=== PATIENT | male | born 1985 | race Caucasian/White ===

== ENCOUNTER 2019-07-20 19:58 | Emergency (ER) | payer BC, OTHER ==
[2019-07-20 20:27] LABS: ABS Basophils 0.1 10^3/ul (0-0.2); ABS Eosinophils 0.3 10^3/ul (0-0.6); ABS Lymphocytes 2.3 10^3/ul (1.0-4.8); ABS Monocytes 0.7 10^3/ul (0-0.8); ABS Neutrophils 7.3 10^3/ul (1.5-7.7); Hematocrit 45 % (42-52); Hemoglobin 15.5 g/dL (14.0-18.0); Lymphocyte % 21.4 %; Mean Corpuscular HGB Conc 35 g/dL (31-36); Mean Corpuscular Hemoglobin 30 pg (27-31); Mean Corpuscular Volume 87 fL (80-94); Mean Platelet Volume 7.9 fL (7.4-10.4); Nucleated Red Blood Cells % 0.1; Platelet Count 233 10^3/uL (150-450); Red Blood Count 5.17 10^6 /uL (4.18-5.48); Red Cell Distribution Width 13 % (10-15); White Blood Count 10.7 10^3/uL (3.5-10.8)
[2019-07-20 20:46] LABS: ALT 28 U/L (7-52); AST 21 U/L (13-39); Albumin 4.7 g/dL (3.2-5.2); Albumin/Globulin Ratio 1.9 (1-3); Alkaline Phosphatase 64 U/L (34-104); Anion Gap 7 mmol/L (2-11); BUN/Creatinine Ratio 11.1 (8-20); Blood Urea Nitrogen 11 mg/dL (6-24); C Reactive Protein 2.16 mg/L (<8.01); CO2 Carbon Dioxide 27 mmol/L (22-32); Chloride 103 mmol/L (101-111); EGFR African American 105.3 (>60); EGFR Non-African American 87.1 (>60); Globulin 2.5 g/dL (2-4); Glucose 104 mg/dL (70-100); Sodium 137 mmol/L (135-145); Total Protein 7.2 g/dL (6.4-8.9)
--- NOTE | 2019-07-20 21:28 | ED ---
Abdominal Pain/Male - HPI Summary HPI Summary: 34 yo male presents with RUQ pain and nausea. He tells me that he ate chickens wings and chips around 1230 today for lunch. About 30min later developed RUQ pain that was mild and cramping. Since that time his pain has increased and has episodes of sharp stabbing pain that last 10-30seconds before resolving spontaneously. He feels nauseous and has not eaten due to this. No vomiting. He denies fever, chills, SOB, chest pain, diarrhea, dysuria, or back pain. Denies PMHx. Nothing OTC for symptoms. - History of Current Complaint Chief Complaint: EDFlankPain Stated Complaint: SHARP PAIN IN SIDE PER PT Time Seen by Provider: 07/20/19 21:27 Hx Obtained From: Patient Onset/Duration: Sudden Onset Severity Initially: Mild Severity Currently: Moderate Pain Intensity: 7 Pain Scale Used: 0-10 Numeric - Allergies/Home Medications Allergies/Adverse Reactions: Allergies Allergy/AdvReac Type Severity Reaction Status Date / Time No Known Allergies Allergy Verified 05/11/13 03:35 PMH/Surg Hx/FS Hx/Imm Hx Endocrine/Hematology History: Denies: Hx Diabetes Cardiovascular History: Denies: Hx Cardiac Arrest, Hx Congestive Heart Failure Respiratory History: Denies: Hx Asthma, Hx Chronic Obstructive Pulmonary Disease (COPD) Neurological History: Denies: Hx CVA, Hx Headaches Psychiatric History: Denies: Hx Anxiety, Hx Depression - Immunization History Immunizations Up to Date: Yes Infectious Disease History: No Infectious Disease History: Denies: Traveled Outside the [place] in Last 30 Days - Social History Occupation: Employed Full-time Lives: With Family Alcohol Use: Occasionally Substance Use Type: Reports: Marijuana Smoking Status (MU): Light Every Day Tobacco Smoker Review of Systems Constitutional: Negative Eyes: Negative ENT: Negative Cardiovascular: Negative Respiratory: Negative Positive: Abdominal Pain, Nausea Genitourinary: Negative Musculoskeletal: Negative Skin: Negative Neurological: Negative Psychological: Normal All Other Systems Reviewed And Are Negative: No Physical Exam - Summary Physical Exam Summary: GENERAL: NAD. WDWN. No pain distress. SKIN: No rashes, sores, or open wounds. HEENT: Head: AT/NC Eyes: PERRLA. EOM intact. Conjunctiva clear without inflammation or discharge. Ears: Hearing grossly normal. TMs intact, no bulging, erythema, or edema. Nose: Nasal mucosa pink and moist. NTTP maxillary and frontal sinus. Throat: Posterior oropharynx without exudates, erythema, or tonsillar enlargement. Uvula midline. NECK: Supple. Nontender. No lymphadenopathy. CHEST: CTAB. No r/r/w. No accessory muscle use. Breathing comfortably and in no distress. CV: RRR. Pulses intact. Brisk cap refill. ABDOMEN: Mild TTP RUQ. Soft. No distention or guarding. No organomegaly. No CVA tenderness. Bowel sounds present NEURO: Alert. PSYCH: Age appropriate behavior. Triage Information Reviewed: Yes Vital Signs On Initial Exam: Initial Vitals Temp Pulse Resp BP Pulse Ox 98.8 F 95 18 140/98 95 07/20/19 20:00 07/20/19 20:00 07/20/19 20:00 07/20/19 20:00 07/20/19 20:00 Vital Signs Reviewed: Yes Procedures - Sedation Patient Received Moderate/Deep Sedation with Procedure: No Diagnostics - Vital Signs Vital Signs Temp Pulse Resp BP Pulse Ox 07/20/19 20:00 98.8 F 95 18 140/98 95 - Laboratory Lab Results: Lab Results Laboratory Tests 07/20/19 07/20/19 07/20/19 20:21 20:21 20:21 WBC 10.7 RBC 5.17 Hgb 15.5 Hct 45 MCV 87 MCH 30 MCHC 35 RDW 13 Plt Count 233 MPV 7.9 Neut % (Auto) 68.3 Lymph % (Auto) 21.4 Larue % (Auto) 6.8 Eos % (Auto) 3.0 Baso % (Auto) 0.5 Absolute Neuts (auto) 7.3 Absolute Lymphs (auto) 2.3 Absolute Monos (auto) 0.7 Absolute Eos (auto) 0.3 Absolute Basos (auto) 0.1 Absolute Nucleated RBC 0.0 Nucleated RBC % 0.1 Sodium 137 Potassium 4.0 Chloride 103 Carbon Dioxide 27 Anion Gap 7 BUN 11 Creatinine 0.99 Est GFR ( Amer) 105.3 Est GFR (Non-Af Amer) 87.1 BUN/Creatinine Ratio 11.1 Glucose 104 H Lactic Acid 0.6 Calcium 10.0 Total Bilirubin 1.40 H AST 21 ALT 28 Alkaline Phosphatase 64 C-Reactive Protein 2.16 Total Protein 7.2 Albumin 4.7 Globulin 2.5 Albumin/Globulin Ratio 1.9 Lipase < 10 L Urine Color Urine Appearance Urine pH Ur Specific Thorpe Urine Protein Urine Ketones Urine Blood Urine Nitrate Urine Bilirubin Urine Urobilinogen Ur Leukocyte Esterase Urine WBC (Auto) Urine RBC (Auto) Urine Bacteria Urine Glucose 07/20/19 21:30 WBC RBC Hgb Hct MCV MCH MCHC RDW Plt Count MPV Neut % (Auto) Lymph % (Auto) Larue % (Auto) Eos % (Auto) Baso % (Auto) Absolute Neuts (auto) Absolute Lymphs (auto) Absolute Monos (auto) Absolute Eos (auto) Absolute Basos (auto) Absolute Nucleated RBC Nucleated RBC % Sodium Potassium Chloride Carbon Dioxide Anion Gap BUN Creatinine Est GFR ( Amer) Est GFR (Non-Af Amer) BUN/Creatinine Ratio Glucose Lactic Acid Calcium Total Bilirubin AST ALT Alkaline Phosphatase C-Reactive Protein Total Protein Albumin Globulin Albumin/Globulin Ratio Lipase Urine Color Yellow Urine Appearance Clear Urine pH 6.0 Ur Specific Thorpe 1.021 Urine Protein Negative Urine Ketones Negative Urine Blood 1+ A Urine Nitrate Negative Urine Bilirubin Negative Urine Urobilinogen Negative Ur Leukocyte Esterase Negative Urine WBC (Auto) Trace(0-5/hpf) Urine RBC (Auto) 2+(6-10/hpf) A Urine Bacteria 1+ A Urine Glucose Negative Result Diagrams: 07/20/19 20:21 07/20/19 20:21 Lab Statement: Any lab studies that have been ordered have been reviewed, and results considered in the medical decision making process. - CT Ab/Pelv CT Interpretation Completed By: Radiologist Summary of CT Findings: IMPRESSION: 1. Distended fluid-filled small bowel loops proximally with mural thickening in the duodenum . No transition point identified. These findings could represent enteritis and/or duodenitis. 2. Partially contracted gallbladder with no pericholecystic stranding. No calcified gallstones.. 3. 3 mm right middle lobe pulmonary nodule. Per Fleischner Society Criteria, if the patient has no risk factors such as smoking or cancer, no further workup is indicated. If they do have risk factors, followup CT is suggested in one year to assess stability. Abdominal Pain Male Course/Dx - Course Course Of Treatment: CT as above. Labs WNL. Discussed with Dr. Valladares - will treat with protonix. In the ED pt was given a GI cocktail of viscous lidocaine, maalox, and pepcid with moderate improvement of his symptoms. Will dc with rx for protonix and have him f/u with a PCP within 1 week for a recheck of his symptoms. - Diagnoses Provider Diagnoses: Duodenitis Discharge ED - Sign-Out/Discharge Documenting (check all that apply): Patient Departure - Discharge Plan Condition: Stable Disposition: HOME Prescriptions: Pantoprazole TAB (NF) [Protonix TAB (NF)] 20 mg PO BID #30 tab Patient Education Materials: Duodenitis (ED), Enteritis (ED) Referrals: No Primary Care Phys,NOPCP [Primary Care Provider] - [facility] [Outside] - As Soon As Possible Additional Instructions: If you develop a fever, shortness of breath, chest pain, new or worsening symptoms - please call your PCP or go to the ED immediately. Your blood pressure was slightly elevated at todays visit. Please see your primary provider within 4 weeks for recheck and re-evaluation. I recommend that you schedule a follow up with a primary doctor within 1 week for a recheck of your symptoms - Billing Disposition and Condition Condition: STABLE Disposition: Home
[2019-07-20] MEDS ORDERED: NS 0.9% 1000 ML** 1,000 ML IV ONE (21:34)
[2019-07-20] MEDS ORDERED: Ketorolac INJ* 30 MG/ML 1 ML VIAL IV ONE (21:34)
[2019-07-20] MEDS ORDERED: Ondansetron INJ* 2 MG/ML VIAL IV ONE (21:34)
[2019-07-20 21:56] LABS: Urine Appearance Clear; Urine Bacteria 1+ (Absent); Urine Bilirubin Negative (Negative); Urine Blood 1+ (Negative); Urine Color Yellow; Urine Glucose Negative (Negative); Urine Ketones Negative (Negative); Urine Nitrite Negative (Negative); Urine Protein Negative (Negative); Urine Red Blood Cell 2+(6-10/hpf) (Absent); Urine Specific Gravity 1.021 (1.010-1.030); Urine Urobilinogen Negative (Negative); Urine White Blood Cell Trace(0-5/hpf) (Absent)
[2019-07-20] MEDS ORDERED: Iohexol 300* (CONTRAST) 10 ML SDV IV ONE (22:44)
[2019-07-20] MEDS ORDERED: Al Hydrox/Mg Hydrox/Simet LIQ* 30 ML UDC PO ONE (23:46)
[2019-07-20] MEDS ORDERED: Famotidine TAB* 20 MG PO ONE (23:46)
[2019-07-20] MEDS ORDERED: Lidocaine 2% VISCOUS* 15 ML UDC PO ONE (23:46)
[2019-07-21 00:50] VITALS: BP 118/68
== END 2019-07-21 00:49 | disposition home or self-care (01) ==
LOC: ED 19:58
DX: K29.80 Duodenitis without bleeding (principal); F17.200 Nicotine dependence, unspecified, uncomplicated; R91.1 Solitary pulmonary nodule
CPT/HCPCS: 36415; 74177; 80053; 81003; 81015; 83605; 83690; 85025; 86140; 87086; 96361; 96374; 96375; 99282; A9270-GY; J1885; J2405; Q9967